=== PATIENT | male | born 1990 | race African-American/Black ===

== ENCOUNTER 2025-04-21 08:21 | Emergency (ER) | payer OTHER ==
[~2025-04-21] VITALS: Ht 185.4 cm; Wt 86.4 kg
[2025-04-21 08:33] VITALS: TEMP 98.3
[2025-04-21] MEDS: ACETAMINOPHEN 500 MG TABLET PO ONE (08:44)
[2025-04-21] MEDS: ONDANSETRON 4 MG TABLET PO ONE (08:44)
[2025-04-21] MEDS: BACITRACIN 0.9 GM PACKET OINTMENT TP ONE (08:44)
[2025-04-21] MEDS: PERTUSS(ACELL),DIPH,TET/PF 0.5 ML SYRINGE [ADULT] IM. ONE (08:44)
[2025-04-21 10:13] LABS: PLATELET COUNT (AUTO) 175 K/uL (150-450); RED BLOOD CELL COUNT(AUTO) 4.99 MIL/uL (4.50-5.90); RED CELL DISTRIBUTION WIDTH 14.2 % (11.5-14.5); WHITE BLOOD COUNT (AUTO) 7.4 K/uL (4.5-11.0)
[2025-04-21 10:16] LABS: CALCIUM, TOTAL 10.2 mg/dL (8.8-10.5); CREATININE 1.51 mg/dL (0.60-1.30); GLOMERULAR FILTR. RATE CALC > 60 mL/min (>60); GLUCOSE,RANDOM 129 mg/dL (70-110); SODIUM SERUM 138 mmol/L (136-145); UREA NITROGEN, BLOOD 12 mg/dL (7-18)
[2025-04-21 10:27] VITALS: BP 131/76; PULSE 72; RESP 16; O2SAT 99
== END 2025-04-21 11:33 ==
LOC: EMS 08:24
DX: S01.01XA Laceration without foreign body of scalp, initial encounter (principal); R42 Dizziness and giddiness; Z65.3 Problems related to other legal circumstances; Y08.89XA Assault by other specified means, initial encounter; Y93.89 Activity, other specified; Y92.89 Other specified places as the place of occurrence of the external cause; Y99.8 Other external cause status
CPT/HCPCS: 99285; 70450; 80048; 85025; 36415; 72125; 90715; 90471; G0480; Q0162